=== PATIENT | female | born 1995 | race Asian ===

== ENCOUNTER 2017-10-25 12:48 | Emergency (ER) | payer OTHER | END 2017-10-25 14:02 | disposition home or self-care (01) | LOC: ER 12:48 | DX: S30.861A Insect bite (nonvenomous) of abdominal wall, initial encounter (principal); S20.96XA Insect bite (nonvenomous) of unspecified parts of thorax, initial encounter; S80.862A Insect bite (nonvenomous), left lower leg, initial encounter; S80.861A Insect bite (nonvenomous), right lower leg, initial encounter; S60.562A Insect bite (nonvenomous) of left hand, initial encounter; S60.561A Insect bite (nonvenomous) of right hand, initial encounter; W57.XXXA Bitten or stung by nonvenomous insect and other nonvenomous arthropods, initial encounter; Y93.89 Activity, other specified; Y99.8 Other external cause status; Y92.89 Other specified places as the place of occurrence of the external cause | CPT/HCPCS: 99283 ==

== ENCOUNTER 2017-11-25 22:28 | Emergency (ER) | payer OTHER | END 2017-11-26 01:16 | disposition home or self-care (01) | LOC: ER 22:28 | DX: K59.00 Constipation, unspecified (principal); F31.9 Bipolar disorder, unspecified | CPT/HCPCS: 74018; 99283 ==